=== PATIENT | male | born 1955 | race Caucasian/White ===

== ENCOUNTER 2017-03-17 04:58 | Emergency (ER) | payer BC, OTHER ==
[2017-03-17] MEDS ORDERED: Ketorolac 10 MG Tab PO ONE (04:59)
--- NOTE | 2017-03-17 05:20 | EDM.PDOC ---
ED HPI GENERAL MEDICAL PROBLEM - General Chief Complaint: Abdominal Pain Stated Complaint: AMBULANCE Time Seen by Provider: 03/17/17 05:00 Source of Information: Reports: Patient, EMS History Limitations: Reports: No Limitations - History of Present Illness INITIAL COMMENTS - FREE TEXT/NARRATIVE: This 61 yo male patient reports to the ED with increased right sided abdominal and right sided flank pain. The patient reports his pain started at about 0100 this morning and has continued to get worse. The patient reports no previous similar symptoms. The patient reports he did not have a bowel movement yesterday , but had one the previous day. The patient reports no history of kidney stones or kidney problems. The patient reports he injured his right leg about 2 months ago and has an appointment next week for further evaluation of his right leg. The patient has not taken anything to make his symptoms better or worse. Onset: Today Onset Date: 03/17/17 Onset Time: 01:00 Duration: Constant, Getting Worse Location: Reports: Abdomen, Back (right flank) Quality: Reports: Ache, Sharp Severity: Severe Improves with: Reports: None Worsens with: Reports: None Associated Symptoms: Reports: No Other Symptoms Right Lower Abdomen Pain Score (Numeric/FACES): 7 - Related Data Allergies Allergy/AdvReac Type Severity Reaction Status Date / Time No Known Allergies Allergy Verified 03/17/17 05:21 Home Meds: Home Meds Losartan/Hydrochlorothiazide [Losartan-HCTZ 100-25 MG] 100 mg PO DAILY 03/17/17 [History] Multivitamins [Tab-A-Gisele] 1 tab PO DAILY 03/17/17 [History] ED ROS GENERAL - Review of Systems Review Of Systems: ROS reveals no pertinent complaints other than HPI. ED EXAM, GI/ABD - Physical Exam Exam: See Below Exam Limited By: No Limitations General Appearance: Alert, WD/WN, Severe Distress Eyes: Bilateral: Normal Appearance, EOMI Ears: Normal External Exam, Normal Canal, Hearing Grossly Normal, Normal TMs Nose: Normal Inspection, Normal Mucosa, No Blood Throat/Mouth: Normal Inspection, Normal Lips, Normal Teeth, Normal Gums, Normal Oropharynx, Normal Voice, No Airway Compromise Head: Atraumatic, Normocephalic Neck: Normal Inspection, Supple, Non-Tender, Full Range of Motion Respiratory/Chest: No Respiratory Distress, Lungs Clear, Normal Breath Sounds, No Accessory Muscle Use, Chest Non-Tender Cardiovascular: Normal Peripheral Pulses, Regular Rate, Rhythm, No Edema, No Gallop, No JVD, No Murmur, No Rub GI/Abdominal Exam: Normal Bowel Sounds, No Organomegaly, No Distention, No Abnormal Bruit, No Mass, Pelvis Stable, Tender (right sided abdominal pain and right flank pain) (Male) Exam: Deferred Rectal (Males) Exam: Deferred Back Exam: CVA Tenderness (R), Paraspinal Tenderness Extremities: Normal Inspection, Normal Range of Motion, Non-Tender, Normal Capillary Refill, No Pedal Edema Neurological: Alert, Oriented, CN II-XII Intact, Normal Cognition, Normal Gait, Normal Reflexes, No Motor/Sensory Deficits Psychiatric: Normal Affect, Normal Mood Skin Exam: Warm, Dry, Intact, Normal Color, No Rash Lymphatic: No Adenopathy Course - Vital Signs Last Recorded V/S: Last Vital Signs Temp 36.3 C 03/17/17 06:51 Pulse 65 03/17/17 06:51 Resp 19 03/17/17 06:51 BP 115/63 03/17/17 06:51 Pulse Ox 95 03/17/17 06:51 - Orders/Labs/Meds Orders: Active Orders 24 hr Category Date Time Status Abdomen Pelvis wo Cont [CT] Urgent Exams 03/17/17 06:18 Taken Labs: Laboratory Tests 03/17/17 03/17/17 03/17/17 Range/Units 05:10 05:10 05:10 WBC 7.9 (5.0-10.0) 10^3/uL RBC 5.07 (4.6-6.2) 10^6/uL Hgb 15.7 (14.0-18.0) g/dL Hct 44.6 (40.0-54.0) % MCV 88.0 (80-100) fL MCH 31.0 (27.0-34.0) pg MCHC 35.2 H (33.0-35.0) g/dL Plt Count 182 (150-450) 10^3/uL Neut % (Auto) 73.5 (42.2-75.2) % Lymph % (Auto) 17.6 L (20.5-50.1) % Real % (Auto) 8.0 (2-8) % Eos % (Auto) 0.6 L (1.0-3.0) % Baso % (Auto) 0.3 (0.0-1.0) % Sodium 138 (135-145) mmol/L Potassium 3.5 L (3.6-5.0) mmol/L Chloride 99 L (101-111) mmol/L Carbon Dioxide 26.0 (21.0-31.0) mmol/L Anion Gap 16.5 BUN 23 H (7-18) mg/dL Creatinine 0.9 (0.6-1.3) mg/dL Est Cr Clr Drug Dosing 114.79 mL/min Estimated GFR (MDRD) > 60 BUN/Creatinine Ratio 25.55 Glucose 257 H (74-105) mg/dL Calcium 9.7 (8.4-10.2) mg/dl Total Bilirubin 1.2 H (0.2-1.0) mg/dL AST 28 (10-42) IU/L ALT 30 (10-60) IU/L Alkaline Phosphatase 55 (42-121) IU/L Total Protein 7.9 (6.7-8.2) g/dl Albumin 4.5 (3.2-5.5) g/dl Globulin 3.4 Albumin/Globulin Ratio 1.32 Amylase 30 (28-100) U/L Lipase 25 (22-51) U/L Urine Color (YELLOW) Urine Appearance (CLEAR) Urine pH (5.0-9.0) Ur Specific [place] (1.005-1.030) Urine Protein (NEGATIVE) Urine Glucose (UA) (NEGATIVE) Urine Ketones (NEGATIVE) Urine Occult Blood (NEGATIVE) Urine Nitrite (NEGATIVE) Urine Bilirubin (NEGATIVE) Urine Urobilinogen (0.2-1.0) mg/dL Ur Leukocyte Esterase (NEGATIVE) Urine RBC /HPF Urine WBC (0-5/HPF) /HPF Ur Epithelial Cells /HPF Urine Bacteria (0-FEW/HPF) /HPF Urine Mucus /LPF 03/17/17 Range/Units 05:46 WBC (5.0-10.0) 10^3/uL RBC (4.6-6.2) 10^6/uL Hgb (14.0-18.0) g/dL Hct (40.0-54.0) % MCV (80-100) fL MCH (27.0-34.0) pg MCHC (33.0-35.0) g/dL Plt Count (150-450) 10^3/uL Neut % (Auto) (42.2-75.2) % Lymph % (Auto) (20.5-50.1) % Real % (Auto) (2-8) % Eos % (Auto) (1.0-3.0) % Baso % (Auto) (0.0-1.0) % Sodium (135-145) mmol/L Potassium (3.6-5.0) mmol/L Chloride (101-111) mmol/L Carbon Dioxide (21.0-31.0) mmol/L Anion Gap BUN (7-18) mg/dL Creatinine (0.6-1.3) mg/dL Est Cr Clr Drug Dosing mL/min Estimated GFR (MDRD) BUN/Creatinine Ratio Glucose (74-105) mg/dL Calcium (8.4-10.2) mg/dl Total Bilirubin (0.2-1.0) mg/dL AST (10-42) IU/L ALT (10-60) IU/L Alkaline Phosphatase (42-121) IU/L Total Protein (6.7-8.2) g/dl Albumin (3.2-5.5) g/dl Globulin Albumin/Globulin Ratio Amylase (28-100) U/L Lipase (22-51) U/L Urine Color Dark yellow (YELLOW) Urine Appearance Cloudy (CLEAR) Urine pH 5.5 (5.0-9.0) Ur Specific [place] 1.020 (1.005-1.030) Urine Protein 100 H (NEGATIVE) Urine Glucose (UA) 250 H (NEGATIVE) Urine Ketones 40 H (NEGATIVE) Urine Occult Blood Large H (NEGATIVE) Urine Nitrite Negative (NEGATIVE) Urine Bilirubin Small H (NEGATIVE) Urine Urobilinogen 0.2 (0.2-1.0) mg/dL Ur Leukocyte Esterase Negative (NEGATIVE) Urine RBC >100 H /HPF Urine WBC 0-5 (0-5/HPF) /HPF Ur Epithelial Cells Rare /HPF Urine Bacteria Few (0-FEW/HPF) /HPF Urine Mucus Few H /LPF Meds: Medications Discontinued Medications Generic Name Dose Route Start Last Admin Trade Name Freq PRN Reason Stop Dose Admin Sodium Chloride 1,000 mls @ 999 mls/hr 03/17/17 05:25 03/17/17 05:30 Normal Saline IV 03/17/17 06:25 999 mls/hr .BOLUS ONE Administration Ketorolac Tromethamine 30 mg 03/17/17 06:20 03/17/17 06:27 Toradol IVPUSH 03/17/17 06:21 30 mg ONETIME ONE Administration - Re-Assessments/Exams Free Text/Narrative Re-Assessment/Exam: 03/17/17 05:32 On follow-up examination, the patient reports no nausea and his pain had subsided. The patient did not want medication for pain or nausea at that time. Departure - Departure Time of Disposition: 07:00 Disposition: Home, Self-Care 01 Condition: Fair Clinical Impression: Kidney stone on right side - Discharge Information Instructions: Kidney Stones, [id number] Forms: ED Department Discharge Care Plan Goals: The patient was advised of the examination, lab and CT results during the visit. The patient was given IV fluids, an IV dose of Toradol and an oral dose of Flomax while in the ED. The patient was discharged with a script for Toradol (10 mg) #20 to take 1 by mouth every 6 hours and Flomax (0.4 mg) #6 to take 1 by mouth daily. If the patient has any additional symptoms or concerns, the patient should follow-up with his primary care facility or return to the ED. - My Orders Last 24 Hours: My Active Orders 03/17/17 06:18 Abdomen Pelvis wo Cont [CT] Urgent - Assessment/Plan Last 24 Hours: My Active Orders 03/17/17 06:18 Abdomen Pelvis wo Cont [CT] Urgent
[2017-03-17] MEDS ORDERED: Sodium Chloride 0.9% 1,000 ML IV ONE (05:25)
[2017-03-17 05:35] LABS: CHLORIDE,CL 99 mmol/L (101-111); SODIUM,NA 138 mmol/L (135-145)
[2017-03-17] MEDS ORDERED: Ketorolac 30 MG/ML SDV IVPUSH ONE (06:20)
[2017-03-17] MEDS ORDERED: Tamsulosin 0.4 MG Cap.ER PO ONE (07:01)
[2017-03-17] MEDS ORDERED: Ketorolac 10 MG Tab ONE (07:24)
== END 2017-03-17 09:29 | disposition home or self-care (01) ==
LOC: DL.ED 04:58
DX: N13.2 Hydronephrosis with renal and ureteral calculous obstruction (principal); Z79.899 Other long term (current) drug therapy
CPT/HCPCS: 36415; 74176; 80053; 81001; 82150; 83690; 85025; 96361; 96374; 99284; A9270; J1885; J7030

== ENCOUNTER 2017-12-05 08:20 | Emergency (ER) | payer OTHER ==
[2017-12-05] MEDS ORDERED: Sodium Chloride 0.9% 1,000 ML IV ONE (08:30)
[2017-12-05] MEDS ORDERED: Ondansetron 4 MG/2 ML SDV IV ONE (08:30)
[2017-12-05] MEDS ORDERED: Ketorolac 30 MG/ML SDV IVPUSH ONE (08:30)
--- NOTE | 2017-12-05 08:37 | EDM.PDOC ---
ED HPI GENERAL MEDICAL PROBLEM - General Stated Complaint: [id number] KIDNEY STONE Time Seen by Provider: 12/05/17 08:25 Source of Information: Reports: Patient History Limitations: Reports: No Limitations - History of Present Illness INITIAL COMMENTS - FREE TEXT/NARRATIVE: This 61 yo male patient reports to the ED with left lower abdominal and left flank pain. The patient reports his symptoms started at 0330 this morning and have been getting worse. The patient reports some nausea and he vomited on his way to the ED. The patient has a history of kidney stones (last stone was in March). The patient reports that he thought he could feel the stone move while on his way to the ED. Onset: Today Onset Date: 12/05/17 Onset Time: 03:30 Duration: Constant Location: Reports: Abdomen (left lower abdomen), Back (left flank) Quality: Reports: Ache, Sharp, Stabbing Severity: Severe Improves with: Reports: None Worsens with: Reports: Movement Associated Symptoms: Reports: Nausea/Vomiting Left Lower Abdomen Pain Score (Numeric/FACES): 8 - Related Data Allergies Allergy/AdvReac Type Severity Reaction Status Date / Time No Known Allergies Allergy Verified 12/05/17 08:43 Home Meds: Home Meds Losartan/Hydrochlorothiazide [Losartan-HCTZ 100-25 MG] 100 mg PO DAILY 03/17/17 [History] Multivitamins [Tab-A-Gisele] 1 tab PO DAILY 03/17/17 [History] Ketorolac [Toradol] 10 mg PO ASDIRECTED PRN 12/05/17 [History] Tamsulosin HCl 0.4 mg PO DAILY 12/05/17 [History] metFORMIN HCl [Metformin HCl] 1,000 mg PO BID 12/05/17 [History] oxyCODONE HCl/Acetaminophen [Oxycodone-Acetaminophen 5-325] 1 tab PO ASDIRECTED PRN 12/05/17 [History] Past Medical History Cardiovascular History: Reports: Hypertension Gastrointestinal History: Reports: GERD Endocrine/Metabolic History: Reports: Diabetes, Type II Social & Family History - Caffeine Use Caffeine Use: Reports: Coffee, Soda, Tea ED ROS GENERAL - Review of Systems Review Of Systems: ROS reveals no pertinent complaints other than HPI. ED EXAM, RENAL/ - Physical Exam Exam: See Below Exam Limited By: No Limitations General Appearance: Alert, WD/WN, Moderate Distress Eye Exam: Bilateral Eye: EOMI, Normal Inspection, PERRL Ears: Normal External Exam, Normal Canal, Hearing Grossly Normal, Normal TMs Nose: Normal Inspection, Normal Mucosa, No Blood Throat/Mouth: Normal Inspection, Normal Lips, Normal Teeth, Normal Gums, Normal Oropharynx, Normal Voice, No Airway Compromise Head: Atraumatic, Normocephalic Neck: Normal Inspection, Supple, Non-Tender, Full Range of Motion Respiratory/Chest: No Respiratory Distress, Lungs Clear, Normal Breath Sounds, No Accessory Muscle Use, Chest Non-Tender Cardiovascular: Normal Peripheral Pulses, Regular Rate, Rhythm, No Edema, No Gallop, No JVD, No Murmur, No Rub GI/Abdominal: Normal Bowel Sounds, Soft, No Organomegaly, No Distention, No Abnormal Bruit, No Mass, Pelvis Stable, Tender (LLQ) (Male) Exam: Deferred Rectal (Males) Exam: Deferred Back Exam: CVA Tenderness (L) Extremities: Normal Inspection, Normal Range of Motion, Non-Tender, Normal Capillary Refill, No Pedal Edema Neurological: Alert, Oriented, CN II-XII Intact, Normal Cognition, Normal Gait, Normal Reflexes, No Motor/Sensory Deficits Psychiatric: Normal Affect, Normal Mood Skin Exam: Warm, Dry, Intact, Normal Color, No Rash Lymphatic: No Adenopathy Course - Vital Signs Last Recorded V/S: Last Vital Signs Temp 36.2 C 12/05/17 08:59 Pulse 64 12/05/17 08:59 Resp 16 12/05/17 08:59 BP 144/70 H 12/05/17 08:59 Pulse Ox 99 12/05/17 08:59 - Orders/Labs/Meds Orders: Active Orders 24 hr Category Date Time Status Abdomen Pelvis wo Cont [CT] Urgent Exams 12/05/17 08:25 Ordered UA W/MICROSCOPIC [URIN] Stat Lab 12/05/17 08:24 Ordered Labs: Laboratory Tests 12/05/17 12/05/17 12/05/17 Range/Units 08:28 08:35 08:35 WBC 15.2 H (5.0-10.0) 10^3/uL RBC 5.14 (4.6-6.2) 10^6/uL Hgb 15.8 (14.0-18.0) g/dL Hct 45.2 (40.0-54.0) % MCV 87.9 (80-100) fL MCH 30.7 (27.0-34.0) pg MCHC 35.0 (33.0-35.0) g/dL Plt Count 185 (150-450) 10^3/uL Neut % (Auto) 83.8 H (42.2-75.2) % Lymph % (Auto) 8.4 L (20.5-50.1) % [place] % (Auto) 7.3 (2-8) % Eos % (Auto) 0.2 L (1.0-3.0) % Baso % (Auto) 0.3 (0.0-1.0) % Sodium 134 L (135-145) mmol/L Potassium 3.4 L (3.6-5.0) mmol/L Chloride 96 L (101-111) mmol/L Carbon Dioxide 27.0 (21.0-31.0) mmol/L Anion Gap 14.4 BUN 31 H (7-18) mg/dL Creatinine 1.4 H (0.6-1.3) mg/dL Est Cr Clr Drug Dosing 62.62 mL/min Estimated GFR (MDRD) 52 BUN/Creatinine Ratio 22.14 Glucose 261 H (74-105) mg/dL Calcium 9.7 (8.4-10.2) mg/dl Total Bilirubin 1.6 H (0.2-1.0) mg/dL AST 29 (10-42) IU/L ALT 32 (10-60) IU/L Alkaline Phosphatase 48 (42-121) IU/L Total Protein 7.8 (6.7-8.2) g/dl Albumin 4.8 (3.2-5.5) g/dl Globulin 3.0 Albumin/Globulin Ratio 1.60 Urine Color Yellow (YELLOW) Urine Appearance Cloudy (CLEAR) Urine pH 5.5 (5.0-9.0) Ur Specific [place] >= 1.030 (1.005-1.030) Urine Protein 100 H (NEGATIVE) Urine Glucose (UA) 100 H (NEGATIVE) Urine Ketones 15 H (NEGATIVE) Urine Occult Blood Large H (NEGATIVE) Urine Nitrite Negative (NEGATIVE) Urine Bilirubin Small H (NEGATIVE) Urine Urobilinogen 0.2 (0.2-1.0) mg/dL Ur Leukocyte Esterase Negative (NEGATIVE) Urine RBC >100 H /HPF Urine WBC 0-5 (0-5/HPF) /HPF Ur Epithelial Cells Occasional /HPF Urine Bacteria Few (0-FEW/HPF) /HPF Urine Mucus Moderate H /LPF Urine Yeast Few H (0/HPF) /HPF Meds: Medications Discontinued Medications Generic Name Dose Route Start Last Admin Trade Name Meli PRN Reason Stop Dose Admin Sodium Chloride 1,000 mls @ 999 mls/hr 12/05/17 08:30 12/05/17 08:39 Normal Saline IV 12/05/17 09:30 999 mls/hr .BOLUS ONE Administration Ketorolac Tromethamine 30 mg 12/05/17 08:30 12/05/17 08:41 Toradol IVPUSH 12/05/17 08:31 30 mg ONETIME ONE Administration Ondansetron HCl 4 mg 12/05/17 08:30 12/05/17 08:40 Zofran IV 12/05/17 08:31 4 mg ONETIME ONE Administration Tamsulosin HCl 0.4 mg 12/05/17 10:08 12/05/17 10:14 Flomax PO 12/05/17 10:09 0.4 mg ONETIME ONE Administration Departure - Departure Time of Disposition: 10:16 Disposition: Home, Self-Care 01 Condition: Fair Clinical Impression: Kidney stone on left side - Discharge Information *PRESCRIPTION DRUG MONITORING PROGRAM REVIEWED*: Not Applicable *COPY OF PRESCRIPTION DRUG MONITORING REPORT IN PATIENT KARINA: Not Applicable Instructions: Kidney Stones, [id number] Forms: ED Department Discharge Care Plan Goals: The patient was advised of the examination, lab and CT results during the visit. The patient was given a liter of IV fluids, IV Toradol and an oral dose of Flomax while in the ED. The patient was discharged with a script for Toradol (10 mg) #20 to take 1 by mouth every 6 hours and Flomax (0.4 mg) #20 to take 1 by mouth daily as needed. If the patient has any additional symptoms or concerns , the patient should follow-up with his primary care facility or return to the ED. - My Orders Last 24 Hours: My Active Orders 12/05/17 08:24 UA W/MICROSCOPIC [URIN] Stat 12/05/17 08:25 Abdomen Pelvis wo Cont [CT] Urgent - Assessment/Plan Last 24 Hours: My Active Orders 12/05/17 08:24 UA W/MICROSCOPIC [URIN] Stat 12/05/17 08:25 Abdomen Pelvis wo Cont [CT] Urgent
[2017-12-05 09:02] LABS: ANION GAP 14.4
[2017-12-05] MEDS ORDERED: Tamsulosin 0.4 MG Cap.ER PO ONE (10:08)
--- NOTE | 2017-12-05 10:50 | CT ---
Clinical history: 61-year-old 258 pound hypertensive male with gross hematuria and left flank pain (h istory "kidney stones"). TECHNIQUE: Volume acquisition of data emergency unenhanced CT scan of the abdomen and pelvis (CT ston e study kidneys/ureters/bladder) obtained while patient was lying supine on the Siemens multislice [place], [place]. All data archived in the PACS system for [employer], reformatting axial/sagittal/coronal planes and study. Interpretation: Abnormal. 1. *Solitary new 4.5 mm oval calcification lodged in the distal left ureter since previous exam Mar. Proximal ureterectasis/pyelocaliectasis and extensive pyelosinus backflow with fluid in t he perinephric space around the left kidney. 2. Reproducible large 4.5 x 8.6 mm diameter calcification lower pole calyx left kidney unchanged. 3. No calcifications or signs of obstructive uropathy contralateral asymptomatic right kidney and 4. Multiple benign-appearing hepatic cysts. Gallbladder, unenhanced liver, stomach, spleen, pancreas and right adrenal gland otherwise unremarkable (2.7 cm diameter cyst or adenoma left adrenal gland pr esent on 17 March 2017). 5. Arteriovascular calcifications normal caliber aortoiliac vessels. Multilevel disc disease and hype rtrophic arthritis lumbar spine. 6. Numerous diverticula without current signs of associated inflammation sigmoid colon. 7. No pelvic or abdominal mass lesion. Dense prostate calcifications. No mesenteric or retroperitonea l lymphadenopathy. No sign of mechanical bowel obstruction, inflammatory "dirty" peritoneal fat, ascites or free air. At electasis left lung base. CONCLUSION: High-grade obstructive uropathy distal left ureterolith. Nephrolithiasis left kidney. Sta ble left adrenal mass.
== END 2017-12-05 10:25 | disposition home or self-care (01) ==
LOC: DL.ED 08:20
DX: N20.2 Calculus of kidney with calculus of ureter (principal); N13.9 Obstructive and reflux uropathy, unspecified; I10 Essential (primary) hypertension; E11.9 Type 2 diabetes mellitus without complications; Z79.84 Long term (current) use of oral hypoglycemic drugs; Z79.899 Other long term (current) drug therapy
CPT/HCPCS: 36415; 74176; 80053; 81001; 85025; 96361; 96374; 96375; 99283; 99284; A9270; J1885; J2405; J7030

== ENCOUNTER 2019-05-29 19:04 | Emergency (ER) | payer OTHER | END 2019-05-29 20:28 | disposition left against medical advice (07) | LOC: DL.ED 19:04 | DX: Z53.21 Procedure and treatment not carried out due to patient leaving prior to being seen by health care provider (principal) ==